=== PATIENT | female | born 1990 | race Caucasian/White ===

== ENCOUNTER 2023-07-20 19:33 | Emergency (ER) | payer BC, OTHER | END 2023-07-21 00:06 | LOC: MW.ED 19:33 | DX: Z02.89 Encounter for other administrative examinations (principal); Z75.8 Other problems related to medical facilities and other health care; Z91.018 Allergy to other foods; Z79.899 Other long term (current) drug therapy | CPT/HCPCS: 36415; 80307; 99282; 99283 ==